=== PATIENT | female | born 1970 | race Caucasian/White ===

== ENCOUNTER 2023-01-10 12:43 | Emergency (ER) | payer OTHER, SELFPAY ==
[2023-01-10 12:51] VITALS: BP 150/88; PULSE 84; RESP 20; TEMP 36.6; O2SAT 95; BMI 28.2
[2023-01-10 13:11] VITALS: PULSE 71
--- NOTE | 2023-01-10 13:15 | PC.NURSE ---
Pt complains of right chest pain which increases with movement or breathing . Pt denies any injury or activity that may have caused this
--- NOTE | 2023-01-10 13:29 | ECG_ITS ---
[facility] Test Date: 2023-01-10 Pat Name: HUSEYIN JAUREGUI Department: Room: - Gender: Female Ve Teacher: : 1970 Requested By: [id number] Order Number: [id number] Reading MD: RADHA BROWNE Measurements Intervals [place] Rate: 71 P: 73 WV: 176 QRS: 57 QRSD: 72 T: 67 QT: 366 QTc: 388 Interpretive Statements 1100 Sinus rhythm 9110 normal ECG No previous ECG available for comparison Electronically Signed On 01-11-2023 7:00:25 EDT by RADHA BROWNE
--- NOTE | 2023-01-10 13:31 | ED_ITS ---
Documented by User: LAILA Cerna 01/10/23 15:09 HPI - General Adult General Chief complaint: Chest Pain Stated complaint: CHEST PAIN Time Seen by Provider: 01/10/23 13:15 Source: patient Mode of arrival: walk-in History of Present Illness HPI narrative: Patient is a 52-year-old female with no significant medical history presents to the emergency department for right upper chest pain that began yesterday morning. She denies any mechanism of injury or trauma. She states she went to the [facility] emergency Department and an EKG was performed, she was sent back out to the [facility] which she states agitated her and she left without being seen. She has continued to have pain to the right upper chest. She denies any shortness of breath. She has a chronic cough that is not worse or different. She has had no fevers, chills, hemoptysis or sputum production. She denies any vomiting, peripheral edema. She states she quit smoking four years ago. She has no history of coronary artery disease. Related Data Previous Rx's Medication Instructions Recorded ketorolac 10 mg tablet 10 mg PO TID PRN pain #10 tabs 01/10/23 methocarbamol 750 mg tablet 750 mg PO TID PRN pain #20 tabs 01/10/23 ondansetron 4 mg disintegrating 4 mg PO Q6H PRN nausea and 01/10/23 tablet vomiting #12 tabs Allergies Allergy/AdvReac Type Severity Reaction Status Date / Time No Known Drug Allergies Allergy Verified 01/10/23 12:50 PFSH FOR[facility]LY [facility], LAT[facility] Medical History (Updated 01/10/23 @ 15:07 by LAILA Cerna) Social History Smoking status: Former smoker Exam Constitutional Vital Signs - 24 hr 01/10/23 12:51 Temperature 98 F Pulse Rate [Monitor] 84 Respiratory Rate 20 Blood Pressure [Right Arm] 150/88 H Pulse Oximetry 95 Oxygen Delivery Method Room Air Course Vital Signs Vital signs: Vital Signs Temperature 98 F 01/10/23 12:51 Pulse Rate 84 01/10/23 12:51 Respiratory Rate 20 01/10/23 12:51 Blood Pressure 150/88 H 01/10/23 12:51 Pulse Oximetry 95 01/10/23 12:51 Oxygen Delivery Method Room Air 01/10/23 12:51 Temperature 98 F 06/21/23 12:51 Pulse Rate 84 01/10/23 12:51 Respiratory Rate 20 01/10/23 12:51 Blood Pressure 150/88 H 01/10/23 12:51 Pulse Oximetry 95 01/10/23 12:51 Oxygen Delivery Method Room Air 01/10/23 12:51 Medical Decision Making MDM Narrative Medical decision making narrative: Patient was medicated with IV Solu-Medrol, Toradol and Norflex for pleuritic- type chest pain. Lab results including d-dimer are within normal limits. Patient with a heart score of two for her age and risk factor of obesity. Chest x-rays unremarkable. Patient was found to have an elevated lipase, she has no abdominal tenderness, fevers or vomiting. Her LFTs and bilirubin are within normal limits. She was encouraged to follow a clear liquid diet for forty-eight hours as a precaution, although her symptoms are more consistent with pleuritic chest wall pain so she will be given Robaxin and naproxen for home. Follow-up closely with PCP and return to the emergency department if symptoms change or worsen. Lab Data Lab results reviewed: Yes I reviewed the patient's lab results Labs: Lab Results 01/10/23 Range/Units 13:45 WBC 5.3 (4.0-11.0) 10^3/uL RBC 4.63 (4.20-5.40) 10^6/uL Hgb 13.5 (12.0-16.0) g/dL Hct 40.2 (36.0-48.0) % MCV 86.8 (81.0-99.0) fL MCH 29.2 (26.7-34.0) pg MCHC 33.6 (29.9-35.2) g/dL RDW 13.3 (11.0-15.0) % Plt Count 287 (150-450) 10^3/uL MPV 10.5 (9.5-13.5) fL Neut % (Auto) 47.7 (43.0-75.0) % Lymph % (Auto) 40.6 (20.5-60.0) % [place] % (Auto) 7.5 (1.7-12.0) % Eos % (Auto) 3.4 (0.9-7.0) % Baso % (Auto) 0.6 (0.2-2.0) % Neut # (Auto) 2.6 (1.4-6.5) 10^3/uL Lymph # (Auto) 2.2 (1.2-3.8) 10^3/uL [place] # (Auto) 0.4 (0.3-0.8) 10^3/uL Eos # (Auto) 0.2 (0.0-0.7) 10^3/uL Baso # (Auto) 0.0 (0.0-0.1) 10^3/uL Abs Immat Gran (auto) 0.01 (0.00-0.03) 10^3/uL Imm/Tot Granulo (auto) 0.2 (0.0-0.5) % PT 9.8 (9.0-11.6) sec INR <0.93 APTT 29.6 (22.3-36.2) sec D-Dimer 0.25 (<=0.59) mg/L FEU Sodium 139 (136-145) mmol/L Potassium 4.3 (3.5-5.1) mmol/L Chloride 103 (98-107) mmol/L Carbon Dioxide 28.8 (21.0-32.0) mmol/L Anion Gap 11.5 BUN 18.0 (7.0-18.0) mg/dL Creatinine 0.82 (0.55-1.02) mg/dL Est GFR ( Amer) >60 (>=60) Est GFR (Non-Af Amer) >60 (>=60) BUN/Creatinine Ratio 22.0 Glucose 97 (74-106) mg/dL Calcium 9.4 (8.5-10.1) mg/dL Total Bilirubin 0.6 (0.2-1.0) mg/dL AST 19 (15-37) U/L ALT 21 (14-59) U/L Alkaline Phosphatase 88 (46-116) U/L Troponin I High Sens <4.0 L (4.0-51.3) pg/mL NT-Pro-B Natriuret Pep 91.0 (<=900.0) pg/mL Total Protein 7.4 (6.4-8.2) g/dL Albumin 3.7 (3.4-5.0) g/dL Globulin 3.7 g/dL Albumin/Globulin Ratio 1.0 Lipase 897.0 H (73.0-393.0) U/L Imaging Data Chest x-ray: Attestation: I have reviewed the pertinent imaging results. Radiologist's impression: Procedure: XR chest 1V EXAMINATION: XR chest 1V HISTORY: chest pain , acute epigastric pain COMPARISON: No relevant comparison available. FINDINGS: LUNGS: No significant pulmonary parenchymal abnormalities. VASCULATURE: No increased pulmonary vasculature. PLEURA: No pneumothorax, effusion, or pleural thickening. CARDIAC: No cardiomegaly or cardiac silhouette abnormality. MEDIASTINUM: No visible mass or adenopathy. BONES: No fracture or visible bone lesion. OTHER: Negative. IMPRESSION: 1. No acute cardiopulmonary process. Electronically authenticated by: FLACO DUPREE Date: 01/10/2023 14:59 ECG Data Attestation: ?I have reviewed the pertinent ECG results. (Normal sinus rhythm at a rate of seventy-one, no acute ST elevation or ectopy. EKG reviewed by attending physician) Discharge Plan Discharge Chief Complaint: Chest Pain Clinical Impression: Atypical chest pain, Elevated lipase Patient Disposition: Home, Self-Care Time of Disposition Decision: 15:06 Condition: Good Prescriptions / Home Meds: New ketorolac 10 mg tablet 10 mg PO TID PRN (Reason: pain) Qty: 10 0RF methocarbamol 750 mg tablet 750 mg PO TID PRN (Reason: pain) Qty: 20 0RF ondansetron 4 mg tablet,disintegrating 4 mg PO Q6H PRN (Reason: nausea and vomiting) Qty: 12 0RF Instructions: Chest Wall Pain (ED) Stand Alone Forms: Portal Instructions Referrals: ИВАН ASHTON [Primary Care Provider] - 1 week Documented by User: Eamon Younger 01/10/23 15:14 HPI - General Adult General Chief complaint: Chest Pain Stated complaint: CHEST PAIN Time Seen by Provider: 01/10/23 13:15 Related Data Previous Rx's Medication Instructions Recorded ketorolac 10 mg tablet 10 mg PO TID PRN pain #10 tabs 01/10/23 methocarbamol 750 mg tablet 750 mg PO TID PRN pain #20 tabs 01/10/23 ondansetron 4 mg disintegrating 4 mg PO Q6H PRN nausea and 01/10/23 tablet vomiting #12 tabs Allergies Allergy/AdvReac Type Severity Reaction Status Date / Time No Known Drug Allergies Allergy Verified 01/10/23 12:50 PFSH FOR[facility]LY [facility] LAT[facility] Medical History (Updated 01/10/23 @ 15:07 by LAILA Cerna) Social History Smoking status: Former smoker Exam Constitutional Vital Signs - 24 hr 01/10/23 12:51 Temperature 98 F Pulse Rate [Monitor] 84 Respiratory Rate 20 Blood Pressure [Right Arm] 150/88 H Pulse Oximetry 95 Oxygen Delivery Method Room Air Course Vital Signs Vital signs: Vital Signs Temperature 98 F 01/10/23 12:51 Pulse Rate 84 01/10/23 12:51 Respiratory Rate 20 01/10/23 12:51 Blood Pressure 150/88 H 01/10/23 12:51 Pulse Oximetry 95 01/10/23 12:51 Oxygen Delivery Method Room Air 01/10/23 12:51 Temperature 98 F 01/10/23 12:51 Pulse Rate 84 01/10/23 12:51 Respiratory Rate 20 01/10/23 12:51 Blood Pressure 150/88 H 01/10/23 12:51 Pulse Oximetry 95 01/10/23 12:51 Oxygen Delivery Method Room Air 01/10/23 12:51 Medical Decision Making MDM Narrative Medical decision making narrative: Patient was medicated with IV Solu-Medrol, Toradol and Norflex for pleuritic- type chest pain. Lab results including d-dimer are within normal limits. Patient with a heart score of two for her age and risk factor of obesity. Chest x-rays unremarkable. Patient was found to have an elevated lipase, she has no abdominal tenderness, fevers or vomiting. Her LFTs and bilirubin are within normal limits. She was encouraged to follow a clear liquid diet for forty-eight hours as a precaution, although her symptoms are more consistent with pleuritic chest wall pain so she will be given Robaxin and naproxen for home. Follow-up closely with PCP and return to the emergency department if symptoms change or worsen. For this patient encounter I reviewed the mid-level provider?s documentation, medical decision-making and treatment plan, and I personally spent time with this patient. Shared APC visit, physician attestation: [id number]: This visit was performed by both a physician and an APC. I personally evaluated and examined the patient. I performed all aspects of MDM as documented. - DO Cristal Lab Data Labs: Lab Results 01/10/23 Range/Units 13:45 WBC 5.3 (4.0-11.0) 10^3/uL RBC 4.63 (4.20-5.40) 10^6/uL Hgb 13.5 (12.0-16.0) g/dL Hct 40.2 (36.0-48.0) % MCV 86.8 (81.0-99.0) fL MCH 29.2 (26.7-34.0) pg MCHC 33.6 (29.9-35.2) g/dL RDW 13.3 (11.0-15.0) % Plt Count 287 (150-450) 10^3/uL MPV 10.5 (9.5-13.5) fL Neut % (Auto) 47.7 (43.0-75.0) % Lymph % (Auto) 40.6 (20.5-60.0) % [place] % (Auto) 7.5 (1.7-12.0) % Eos % (Auto) 3.4 (0.9-7.0) % Baso % (Auto) 0.6 (0.2-2.0) % Neut # (Auto) 2.6 (1.4-6.5) 10^3/uL Lymph # (Auto) 2.2 (1.2-3.8) 10^3/uL [place] # (Auto) 0.4 (0.3-0.8) 10^3/uL Eos # (Auto) 0.2 (0.0-0.7) 10^3/uL Baso # (Auto) 0.0 (0.0-0.1) 10^3/uL Abs Immat Gran (auto) 0.01 (0.00-0.03) 10^3/uL Imm/Tot Granulo (auto) 0.2 (0.0-0.5) % PT 9.8 (9.0-11.6) sec INR <0.93 APTT 29.6 (22.3-36.2) sec D-Dimer 0.25 (<=0.59) mg/L FEU Sodium 139 (136-145) mmol/L Potassium 4.3 (3.5-5.1) mmol/L Chloride 103 (98-107) mmol/L Carbon Dioxide 28.8 (21.0-32.0) mmol/L Anion Gap 11.5 BUN 18.0 (7.0-18.0) mg/dL Creatinine 0.82 (0.55-1.02) mg/dL Est GFR ( Amer) >60 (>=60) Est GFR (Non-Af Amer) >60 (>=60) BUN/Creatinine Ratio 22.0 Glucose 97 (74-106) mg/dL Calcium 9.4 (8.5-10.1) mg/dL Total Bilirubin 0.6 (0.2-1.0) mg/dL AST 19 (15-37) U/L ALT 21 (14-59) U/L Alkaline Phosphatase 88 (46-116) U/L Troponin I High Sens <4.0 L (4.0-51.3) pg/mL NT-Pro-B Natriuret Pep 91.0 (<=900.0) pg/mL Total Protein 7.4 (6.4-8.2) g/dL Albumin 3.7 (3.4-5.0) g/dL Globulin 3.7 g/dL Albumin/Globulin Ratio 1.0 Lipase 897.0 H (73.0-393.0) U/L Discharge Plan Discharge Chief Complaint: Chest Pain Clinical Impression: Atypical chest pain, Elevated lipase Patient Disposition: Home, Self-Care Time of Disposition Decision: 15:06 Condition: Good Prescriptions / Home Meds: New ketorolac 10 mg tablet 10 mg PO TID PRN (Reason: pain) Qty: 10 0RF methocarbamol 750 mg tablet 750 mg PO TID PRN (Reason: pain) Qty: 20 0RF ondansetron 4 mg tablet,disintegrating 4 mg PO Q6H PRN (Reason: nausea and vomiting) Qty: 12 0RF Instructions: Chest Wall Pain (ED) Stand Alone Forms: Portal Instructions Referrals: ИВАН ASHTON [Primary Care Provider] - 1 week
[2023-01-10] MEDS: METHYLPREDNISOLONE SOD SUCC PF 125 MG/2 ML VIAL IVP (13:51)
[2023-01-10] MEDS: KETOROLAC TROMETHAMINE 30 MG/ML VIAL IVP (13:52)
[2023-01-10] MEDS: ORPHENADRINE 60 MG/ 2 ML VIAL IV (13:53)
[2023-01-10 13:56] LABS: Basophils Percent Auto 0.6 % (0.2-2.0); Eosinophils Absolute Auto 0.2 10^3/uL (0.0-0.7); Eosinophils Percent Auto 3.4 % (0.9-7.0); Hematocrit 40.2 % (36.0-48.0); Hemoglobin 13.5 g/dL (12.0-16.0); Immature Granulocytes Abs Auto 0.01 10^3/uL (0.00-0.03); Immature Granulocytes Pct Auto 0.2 % (0.0-0.5); Lymphocytes Absolute Auto 2.2 10^3/uL (1.2-3.8); Lymphocytes Percent Auto 40.6 % (20.5-60.0); Mean Corpuscular HGB Conc 33.6 g/dL (29.9-35.2); Mean Corpuscular Hemoglobin 29.2 pg (26.7-34.0); Mean Corpuscular Volume 86.8 fL (81.0-99.0); Mean Platelet Volume 10.5 fL (9.5-13.5); Monocytes Absolute Auto 0.4 10^3/uL (0.3-0.8); Monocytes Percent Auto 7.5 % (1.7-12.0); Neutrophils Absolute Auto 2.6 10^3/uL (1.4-6.5); Neutrophils Percent Auto 47.7 % (43.0-75.0); Platelet Count 287 10^3/uL (150-450); Red Blood Count 4.63 10^6/uL (4.20-5.40); Red Cell Distribution Width 13.3 % (11.0-15.0); White Blood Count 5.3 10^3/uL (4.0-11.0)
[2023-01-10 14:14] LABS: Alanine Aminotransferase 21 U/L (14-59); Albumin Level 3.7 g/dL (3.4-5.0); Alkaline Phosphatase 88 U/L (46-116); Anion Gap 11.5; Aspartate Amino Transferase 19 U/L (15-37); Bilirubin Total 0.6 mg/dL (0.2-1.0); Calcium 9.4 mg/dL (8.5-10.1); Carbon Dioxide 28.8 mmol/L (21.0-32.0); Chloride 103 mmol/L (98-107); Estimated GFR (African America >60 (>=60); Estimated GFR (Non-African Ame >60 (>=60); Globulin 3.7 g/dL; Glucose 97 mg/dL (74-106); Potassium 4.3 mmol/L (3.5-5.1); Sodium 139 mmol/L (136-145); Total Protein 7.4 g/dL (6.4-8.2)
[2023-01-10 14:21] LABS: Troponin I High Sensitivity <4.0 pg/mL (4.0-51.3)
[2023-01-10 14:27] LABS: D Dimer 0.25 mg/L FEU (<=0.59); Partial Thromboplastin Time 29.6 sec (22.3-36.2); Prothrombin Time 9.8 sec (9.0-11.6)
[2023-01-10 14:35] LABS: INR <0.93
--- NOTE | 2023-01-10 14:49 | XR_ITS ---
The [address] [address] Patient Name: HUSEYIN JAUREGUI MRN: [id number] date: 1970 Sex: F Assigned Patient Location: ER Current Patient Location: ER Accession/Order Number: [id number] Exam Date: 01/10/2023 14:45 Report Date: 01/10/2023 14:59 At the request of: BARB CANTU Procedure: XR chest 1V EXAMINATION: XR chest 1V HISTORY: chest pain , acute epigastric pain COMPARISON: No relevant comparison available. FINDINGS: LUNGS: No significant pulmonary parenchymal abnormalities. VASCULATURE: No increased pulmonary vasculature. PLEURA: No pneumothorax, effusion, or pleural thickening. CARDIAC: No cardiomegaly or cardiac silhouette abnormality. MEDIASTINUM: No visible mass or adenopathy. BONES: No fracture or visible bone lesion. OTHER: Negative. IMPRESSION: 1. No acute cardiopulmonary process. Electronically authenticated by: FLACO DUPREE Date: 01/10/2023 14:59
[2023-01-10 15:19] VITALS: BP 127/84; PULSE 68; RESP 18; TEMP 36.4; O2SAT 96
== END 2023-01-10 15:35 | disposition home or self-care (01) ==
PROVIDERS: Physician Assistant; Emergency Provider Emergency Medicine
DX: R07.89 Other chest pain (principal); R74.8 Abnormal levels of other serum enzymes; Z87.891 Personal history of nicotine dependence
CPT/HCPCS: 36415; 71045; 80053; 83690; 83880; 84484; 85025; 85378; 85610; 85730; 93005; 96374; 96375; 99285; J2930